=== PATIENT | male | born 1960 | race Caucasian/White ===

== ENCOUNTER 2018-11-28 10:43 | Inpatient (IN) ==
[2018-11-28] MEDS ORDERED: ACETAMINOPHEN 325 MG TABLET PO PRN (15:06)
[2018-11-28] MEDS ORDERED: ZALEPLON 5 MG CAPSULE PO PRN (15:06)
[2018-11-28] MEDS ORDERED: ONDANSETRON 4 MG/2 ML VIAL IV PRN (15:06)
[2018-11-28] MEDS: SODIUM CHLORIDE 0.9% 1,000 ML IV SCH (16:08)
[2018-11-28] MEDS ORDERED: GLUCAGON 1 MG VIAL IM PRN (16:15)
[2018-11-28] MEDS ORDERED: DEXTROSE 50% 25 GM/50 ML SYRINGE IV PRN (16:15)
[2018-11-28] MEDS: INSULIN LISPRO 100 UNIT/ML SUBCUT SCH (16:30)
[2018-11-28] MEDS: AZITHROMYCIN INJ 500 MG in SODIUM CHLORIDE 0.9% 250 ML IV SCH (16:46)
[2018-11-28] MEDS: methylPREDNISolone SOD SUC 125 MG/2 ML VIAL IV SCH ×2 (16:48→22:45)
[2018-11-28] MEDS: cefTRIAXone 1,000 MG in SYRINGE 1 EACH IV SCH (16:49)
[2018-11-28] MEDS: HEPARIN 5,000 UNIT/1 ML VIAL SUBCUT SCH (16:50)
[2018-11-28] MEDS: ALBUTEROL/IPRATROPIUM 3 ML NEB RESP TX SCH (19:13)
[2018-11-28] MEDS: MORPHINE IR 15 MG TABLET PO SCH (22:42)
[2018-11-28] MEDS: DOCUSATE SODIUM 100 MG CAPSULE PO SCH (22:43)
[2018-11-28] MEDS: CARISOPRODOL 350 MG TABLET PO SCH (22:45)
[2018-11-28] MEDS: buPROPion 75 MG TABLET PO SCH (22:45)
[2018-11-29] MEDS: INSULIN LISPRO 100 UNIT/ML SUBCUT SCH ×5 (00:20→20:15)
[2018-11-29] MEDS: SODIUM CHLORIDE 0.9% 1,000 ML IV SCH ×3 (00:47→21:05)
[2018-11-29] MEDS: HEPARIN 5,000 UNIT/1 ML VIAL SUBCUT SCH ×3 (00:47→16:09)
[2018-11-29] MEDS: ALBUTEROL/IPRATROPIUM 3 ML NEB RESP TX SCH ×4 (01:13→18:59)
[2018-11-29] MEDS: methylPREDNISolone SOD SUC 125 MG/2 ML VIAL IV SCH ×4 (05:12→22:32)
[2018-11-29] MEDS: MORPHINE IR 15 MG TABLET PO SCH ×3 (05:15→21:08)
[2018-11-29 05:52] LABS: Basophils % 0.1 % (0.0-0.8); Hemoglobin 15.9 GM/DL (14.0-18.0); Immature Granulocytes % 0.6 %; Immature Granulocytes Absolute 0.07 #; Lymphocytes # 0.5 10*3/uL (1.4-4.0); Lymphocytes % 4.3 % (21.2-54.2); Mean Corpuscular HGB Conc 31.8 GM/DL (32-36); Mean Corpuscular Volume 98.8 FL (87-102); Mean Platelet Volume 10.5 FL (9.6-12.0); Monocytes % 0.4 % (1.7-12.7); Neutrophils % 94.6 % (38.7-73.9); Platelet Count 243 T/CUMM (130-400); Red Blood Count 5.06 MC/CUMM (3.8-5.5); White Blood Count 12.2 T/CUMM (4-12)
[2018-11-29 06:19] LABS: Band Neutrophils 1 % (0-10); Hypochromasia 1+; Lymphocytes 2 % (20-55); Platelet Estimate Adequate; Segmented Neutrophils 97 % (50-85); Total Cells Counted 100
[2018-11-29 06:23] LABS: Albumin 3.2 G/DL (3.4-5.0); Bilirubin,Total 1.3 MG/DL (0.2-1.0); Calcium 9.3 MG/DL (8.5-10.1); Osmolality,Calculated 280.7 MOS/KG (273-304); Risk Ratio 2.92; Total Protein 6.7 G/DL (6.4-8.3); VLDL CHOLESTEROL 11.8 MG/DL
[2018-11-29] MEDS ORDERED: DEXAMETHASONE 10 MG/1 ML VIAL IV ONE (09:00)
[2018-11-29] MEDS ORDERED: diphenhydrAMINE 50 MG/1 ML VIAL IV ONE (09:00)
[2018-11-29] MEDS ORDERED: CARBOplatin 550 MG in SODIUM CHLORIDE 0.9% 250 ML IV ONE (09:00)
[2018-11-29] MEDS ORDERED: PACLITAXEL IV ONE (09:00)
[2018-11-29] MEDS ORDERED: SODIUM CHLORIDE 0.9% IV ONE (09:00)
[2018-11-29] MEDS ORDERED: ONDANSETRON 4 MG/2 ML VIAL IV ONE (09:00)
[2018-11-29] MEDS ORDERED: FAMOTIDINE 20 MG/2 ML VIAL IV ONE (09:00)
[2018-11-29] MEDS: buPROPion 75 MG TABLET PO SCH ×2 (09:37→21:07)
[2018-11-29] MEDS: DOCUSATE SODIUM 100 MG CAPSULE PO SCH ×2 (09:37→21:07)
[2018-11-29] MEDS: PANTOPRAZOLE 40 MG TABLET PO SCH (09:37)
[2018-11-29] MEDS: LISINOPRIL 10 MG TABLET PO SCH (09:37)
[2018-11-29] MEDS: hydroCHLOROthiazide 25 MG TABLET PO SCH (09:37)
[2018-11-29] MEDS: CARISOPRODOL 350 MG TABLET PO SCH ×2 (09:37→22:31)
[2018-11-29] MEDS ORDERED: MYLANTA/LIDO VISC 2:1 300 ML BOTTLE SWISH/SPIT PRN (13:50)
[2018-11-29] MEDS ORDERED: LACTULOSE 20 GM/30 ML UDCUP PO PRN (13:50)
[2018-11-29] MEDS ORDERED: TEMAZEPAM 7.5 MG CAPSULE PO PRN (13:50)
[2018-11-29] MEDS ORDERED: BENZTROPINE 2 MG/2 ML AMP IV PRN (13:50)
[2018-11-29] MEDS ORDERED: ALUMINUM/MAGNES/SIMETH MAX STR 30 ML UDCUP PO PRN (13:50)
[2018-11-29] MEDS ORDERED: PROMETHAZINE INJ 25 MG in SODIUM CHLORIDE 0.9% 50 ML IV PRN (13:50)
[2018-11-29] MEDS ORDERED: ONDANSETRON 4 MG/2 ML VIAL IV PRN (13:50)
[2018-11-29] MEDS ORDERED: MYLANTA/LIDO VISC 2:1 300 ML BOTTLE SWISH/SWAL PRN (13:50)
[2018-11-29] MEDS ORDERED: traMADol 50 MG TABLET PO PRN (13:50)
[2018-11-29] MEDS ORDERED: LOPERAMIDE 2 MG CAPSULE PO PRN ×2 (13:50)
[2018-11-29] MEDS ORDERED: ALPRAZolam 0.25 MG TABLET PO PRN (13:50)
[2018-11-29] MEDS ORDERED: MAGNESIUM HYDROXIDE SUSP 30 ML UDCUP PO PRN (13:50)
[2018-11-29] MEDS ORDERED: guaiFENesin 200 MG/10 ML UDCUP PO PRN (13:50)
[2018-11-29] MEDS ORDERED: diphenhydrAMINE CAP 25 MG CAPSULE PO PRN (13:50)
[2018-11-29] MEDS ORDERED: ACETAMINOPHEN 325 MG TABLET PO PRN (13:50)
[2018-11-29 14:29] LABS: Barbiturates Screen,Urine Negative (Negative); Benzodiazepines Screen,Urine Negative (Negative); Cannabinoid Screen,Urine Negative (Negative); Opiate Screen,Urine Positive (Negative); Phencyclidine Screen,Urine Negative (Negative)
[2018-11-29] MEDS: cefTRIAXone 1,000 MG in SYRINGE 1 EACH IV SCH (16:09)
[2018-11-29] MEDS: AZITHROMYCIN INJ 500 MG in SODIUM CHLORIDE 0.9% 250 ML IV SCH (17:25)
[2018-11-29] MEDS: MORPHINE 4 MG/1 ML VIAL IV PRN ×2 (17:52→22:34)
[2018-11-30] MEDS: ALBUTEROL/IPRATROPIUM 3 ML NEB RESP TX SCH ×3 (00:37→13:30)
[2018-11-30] MEDS: SODIUM CHLORIDE 0.9% 1,000 ML IV SCH (00:41)
[2018-11-30] MEDS: HEPARIN 5,000 UNIT/1 ML VIAL SUBCUT SCH ×2 (00:42→09:44)
[2018-11-30] MEDS: MORPHINE IR 15 MG TABLET PO SCH ×2 (05:45→14:09)
[2018-11-30] MEDS: methylPREDNISolone SOD SUC 125 MG/2 ML VIAL IV SCH ×2 (05:45→11:45)
[2018-11-30] MEDS: CARISOPRODOL 350 MG TABLET PO SCH ×2 (05:45→14:08)
[2018-11-30 05:48] LABS: Basophils % 0.1 % (0.0-0.8); Hematocrit 47.6 VOL% (42.0-52.0); Hemoglobin 15.7 GM/DL (14.0-18.0); Immature Granulocytes % 0.7 %; Immature Granulocytes Absolute 0.13 #; Lymphocytes # 0.6 10*3/uL (1.4-4.0); Mean Corpuscular Volume 96.6 FL (87-102); Mean Platelet Volume 10.7 FL (9.6-12.0); Monocytes % 2.8 % (1.7-12.7); Neutrophils % 93.4 % (38.7-73.9); Platelet Count 227 T/CUMM (130-400); Red Blood Count 4.93 MC/CUMM (3.8-5.5); White Blood Count 19.9 T/CUMM (4-12)
[2018-11-30 06:22] LABS: Lymphocytes 4 % (20-55); Platelet Estimate Adequate; Segmented Neutrophils 94 % (50-85); Total Cells Counted 100
[2018-11-30 06:33] LABS: Alanine Aminotransferase 22 U/L (16-61); Albumin 3.2 G/DL (3.4-5.0); Alkaline Phosphatase 80 U/L (45-117); Aspartate Amino Transferase 10 U/L (0-37); Bilirubin,Total < 0.39 MG/DL (0.2-1.0); Blood Urea Nitrogen 21 MG/DL (7-18); Calcium 8.7 MG/DL (8.5-10.1); Glucose 118 MG/DL (74-106); Osmolality,Calculated 278.7 MOS/KG (273-304); Total Protein 6.6 G/DL (6.4-8.3)
[2018-11-30] MEDS: INSULIN LISPRO 100 UNIT/ML SUBCUT SCH ×2 (07:57→12:09)
[2018-11-30] MEDS: DOCUSATE SODIUM 100 MG CAPSULE PO SCH (09:44)
[2018-11-30] MEDS: hydroCHLOROthiazide 25 MG TABLET PO SCH (09:44)
[2018-11-30] MEDS: LISINOPRIL 10 MG TABLET PO SCH (09:44)
[2018-11-30] MEDS: PANTOPRAZOLE 40 MG TABLET PO SCH (09:44)
[2018-11-30] MEDS: buPROPion 75 MG TABLET PO SCH (09:46)
[2018-11-30 12:10] VITALS: BP 137/76
[2018-11-30] MEDS: AZITHROMYCIN INJ 500 MG in SODIUM CHLORIDE 0.9% 250 ML IV SCH (15:14)
[2018-11-30] MEDS: cefTRIAXone 1,000 MG in SYRINGE 1 EACH IV SCH (15:14)
== END 2018-11-30 15:54 | disposition home or self-care (01) | DRG 847 ==
LOC: N.4E 14:44 → SUATTDRO 14:44
PROVIDERS: ADMIT Internal Medicine; ATTEND Internal Medicine

== ENCOUNTER 2019-03-23 14:44 | Inpatient (IN) ==
[2019-03-23] MEDS ORDERED: ONDANSETRON 4 MG/2 ML VIAL IV STA (15:33)
[2019-03-23] MEDS ORDERED: HYDROmorphone 2 MG/1 ML VIAL IV STA (15:33)
[2019-03-23 16:32] LABS: Alanine Aminotransferase 20 U/L (16-61); Albumin 3.5 G/DL (3.4-5.0); Alkaline Phosphatase 86 U/L (45-117); Aspartate Amino Transferase 11 U/L (0-37); Bilirubin,Total < 0.39 MG/DL (0.2-1.0); Blood Urea Nitrogen 16 MG/DL (7-18); Calcium 9.5 MG/DL (8.5-10.1); Glucose 100 MG/DL (74-106); Osmolality,Calculated 279.4 MOS/KG (273-304); Total Protein 7.3 G/DL (6.4-8.3)
[2019-03-23 16:43] LABS: Apearance,Urine CLOUDY (Clear); Bilirubin,Urine Negative (Negative); Blood, Urine Small mg/dL (Negative); Glucose,Urine (UA) Negative (Negative); Ketones,Urine Negative (Negative); Nitrite,Urine Negative (Negative); Protein,Urine Negative; Urine Color Yellow (Yellow); Urine Specific Gravity 1.015 (1.001-1.035); Urine Urobilinogen < 2.0 EU/DL (0.2-1.0)
[2019-03-23] MEDS ORDERED: ACETAMINOPHEN 325 MG TABLET PO PRN (17:50)
[2019-03-23] MEDS ORDERED: ONDANSETRON 4 MG/2 ML VIAL IV PRN (17:50)
[2019-03-23 19:19] LABS: Basophils % 0.5 % (0.0-0.8); Eosinophils # 0.2 10*3/uL (0.0-0.87); Eosinophils % 2.3 % (0.00-10.9); Hematocrit 47.3 VOL% (42.0-52.0); Hemoglobin 15.2 GM/DL (14.0-18.0); Immature Granulocytes % 0.4 %; Immature Granulocytes Absolute 0.03 #; Lymphocytes # 0.7 10*3/uL (1.4-4.0); Mean Corpuscular HGB Conc 32.1 GM/DL (32-36); Mean Corpuscular Volume 104.2 FL (87-102); Monocytes % 13.5 % (1.7-12.7); Neutrophils % 74.3 % (38.7-73.9); Platelet Count 200 T/CUMM (130-400); Red Blood Count 4.54 MC/CUMM (3.8-5.5); White Blood Count 8.1 T/CUMM (4-12)
[2019-03-23] MEDS: SODIUM CHLORIDE 0.9% 1,000 ML IV SCH (21:28)
[2019-03-23] MEDS: MORPHINE 4 MG/1 ML VIAL IV PRN (21:45)
[2019-03-24 04:56] LABS: Basophils % 0.6 % (0.0-0.8); Eosinophils # 0.2 10*3/uL (0.0-0.87); Eosinophils % 2.6 % (0.00-10.9); Hematocrit 48.7 VOL% (42.0-52.0); Immature Granulocytes % 0.4 %; Immature Granulocytes Absolute 0.03 #; Lymphocytes # 0.6 10*3/uL (1.4-4.0); Lymphocytes % 8.8 % (21.2-54.2); Mean Corpuscular HGB Conc 30.8 GM/DL (32-36); Mean Corpuscular Volume 107.3 FL (87-102); Mean Platelet Volume 9.6 FL (9.6-12.0); Monocytes % 12.1 % (1.7-12.7); Neutrophils % 75.5 % (38.7-73.9); Platelet Count 189 T/CUMM (130-400); Red Blood Count 4.54 MC/CUMM (3.8-5.5); Red Cell Distribution Width 13.9 % (9.3-17.3); White Blood Count 7.3 T/CUMM (4-12)
[2019-03-24 05:32] LABS: Calcium 9.5 MG/DL (8.5-10.1); Osmolality,Calculated 279.4 MOS/KG (273-304); Risk Ratio 4.47; Thyroid Stimulating Hormone 1.54 uIU/ml (0.358-3.74); VLDL CHOLESTEROL 23.6 MG/DL
[2019-03-24 06:30] LABS: Platelet Estimate Adequate; Polychromasia Slight
[2019-03-24] MEDS ORDERED: fentaNYL 12 MCG/HR PATCH TRANSDERM SCH (09:00)
[2019-03-24] MEDS: MORPHINE 4 MG/1 ML VIAL IV PRN ×2 (09:18→16:17)
[2019-03-24] MEDS: CYCLOBENZAPRINE 10 MG TABLET PO SCH ×2 (09:23→21:06)
[2019-03-24] MEDS: PANTOPRAZOLE 40 MG TABLET PO SCH (09:24)
[2019-03-24] MEDS: MULTIVITAMIN (CENTRUM) TABLET PO SCH (09:24)
[2019-03-24] MEDS: NICOTINE 14 MG/24 HR PATCH TRANSDERM SCH (09:24)
[2019-03-24] MEDS: ASPIRIN EC 81 MG TABLET PO SCH (09:24)
[2019-03-24] MEDS: SODIUM CHLORIDE 0.9% 1,000 ML IV SCH (10:33)
[2019-03-24] MEDS: GABAPENTIN 100 MG CAPSULE PO SCH ×2 (16:17→21:06)
[2019-03-25] MEDS: MORPHINE 4 MG/1 ML VIAL IV PRN ×3 (01:12→21:25)
[2019-03-25] MEDS: SODIUM CHLORIDE 0.9% 1,000 ML IV SCH (01:14)
[2019-03-25 04:35] LABS: Basophils % 0.5 % (0.0-0.8); Eosinophils # 0.2 10*3/uL (0.0-0.87); Eosinophils % 2.8 % (0.00-10.9); Hematocrit 45.7 VOL% (42.0-52.0); Hemoglobin 14.9 GM/DL (14.0-18.0); Immature Granulocytes % 0.4 %; Immature Granulocytes Absolute 0.03 #; Lymphocytes # 0.7 10*3/uL (1.4-4.0); Lymphocytes % 8.7 % (21.2-54.2); Mean Corpuscular HGB Conc 32.6 GM/DL (32-36); Mean Corpuscular Volume 105.1 FL (87-102); Mean Platelet Volume 9.4 FL (9.6-12.0); Monocytes % 11.2 % (1.7-12.7); Neutrophils % 76.4 % (38.7-73.9); Platelet Count 150 T/CUMM (130-400); Red Blood Count 4.35 MC/CUMM (3.8-5.5); Red Cell Distribution Width 13.7 % (9.3-17.3); White Blood Count 7.5 T/CUMM (4-12)
[2019-03-25 04:53] LABS: Calcium 8.9 MG/DL (8.5-10.1); Osmolality,Calculated 276.5 MOS/KG (273-304)
[2019-03-25] MEDS ORDERED: ALBUTEROL/IPRATROPIUM 3 ML NEB RESP TX ONE (07:27)
[2019-03-25] MEDS ORDERED: FAMOTIDINE 20 MG TABLET PO ONE (07:27)
[2019-03-25] MEDS: PANTOPRAZOLE 40 MG TABLET PO SCH (08:16)
[2019-03-25] MEDS: MULTIVITAMIN (CENTRUM) TABLET PO SCH (08:16)
[2019-03-25] MEDS ORDERED: DIAZEPAM 5 MG TABLET PO ONE (09:00)
[2019-03-25] MEDS: CYCLOBENZAPRINE 10 MG TABLET PO SCH ×2 (09:06→21:21)
[2019-03-25] MEDS: GABAPENTIN 100 MG CAPSULE PO SCH ×3 (09:07→21:21)
[2019-03-25 09:36] LABS: Barbiturates Screen,Urine Negative (Negative); Benzodiazepines Screen,Urine Negative (Negative); Cannabinoid Screen,Urine Negative (Negative); Opiate Screen,Urine Positive (Negative); Phencyclidine Screen,Urine Negative (Negative)
[2019-03-25] MEDS ORDERED: methylPREDNISolone ACETATE 80 MG/1 ML VIAL ONE (11:35)
[2019-03-25] MEDS ORDERED: MIDAZOLAM 2 MG/2 ML VIAL ONE (12:21)
[2019-03-25] MEDS ORDERED: ONDANSETRON 4 MG/2 ML VIAL ONE (12:22)
[2019-03-25] MEDS ORDERED: fentaNYL 100 MCG/2 ML VIAL ONE (12:22)
[2019-03-25] MEDS: NICOTINE 14 MG/24 HR PATCH TRANSDERM SCH (13:38)
[2019-03-25] MEDS ORDERED: fentaNYL 25 MCG/HR PATCH TRANSDERM SCH (18:06)
[2019-03-26] MEDS ORDERED: ALBUTEROL/IPRATROPIUM 3 ML NEB RESP TX STA (01:51)
[2019-03-26 05:03] LABS: Basophils % 0.5 % (0.0-0.8); Eosinophils # 0.2 10*3/uL (0.0-0.87); Eosinophils % 2.1 % (0.00-10.9); Hematocrit 46.7 VOL% (42.0-52.0); Hemoglobin 15.3 GM/DL (14.0-18.0); Immature Granulocytes % 0.4 %; Immature Granulocytes Absolute 0.03 #; Lymphocytes # 0.5 10*3/uL (1.4-4.0); Lymphocytes % 6.3 % (21.2-54.2); Mean Corpuscular HGB Conc 32.8 GM/DL (32-36); Mean Corpuscular Volume 103.8 FL (87-102); Mean Platelet Volume 9.5 FL (9.6-12.0); Monocytes % 9.7 % (1.7-12.7); Platelet Count 160 T/CUMM (130-400); Red Cell Distribution Width 13.3 % (9.3-17.3); White Blood Count 8.1 T/CUMM (4-12)
[2019-03-26 05:27] LABS: Calcium 9.3 MG/DL (8.5-10.1); Osmolality,Calculated 275.7 MOS/KG (273-304)
[2019-03-26] MEDS: MULTIVITAMIN (CENTRUM) TABLET PO SCH (08:33)
[2019-03-26] MEDS: GABAPENTIN 100 MG CAPSULE PO SCH ×2 (08:33→15:45)
[2019-03-26] MEDS: ASPIRIN EC 81 MG TABLET PO SCH (08:33)
[2019-03-26] MEDS: CYCLOBENZAPRINE 10 MG TABLET PO SCH (08:34)
[2019-03-26] MEDS: PANTOPRAZOLE 40 MG TABLET PO SCH (08:34)
[2019-03-26] MEDS: NICOTINE 14 MG/24 HR PATCH TRANSDERM SCH (08:35)
[2019-03-26] MEDS: MORPHINE 4 MG/1 ML VIAL IV PRN (15:45)
[2019-03-26 16:11] VITALS: BP 107/71
== END 2019-03-26 18:00 | disposition home or self-care (01) | DRG 343 ==
LOC: N.ED 14:44 → N.EDINP 17:48 → SUPCPDRO 17:48 → N.4E 19:19
PROVIDERS: ADMIT Internal Medicine; ATTEND Internal Medicine

== ENCOUNTER 2019-04-11 21:23 | Inpatient (IN) ==
[2019-04-11] MEDS ORDERED: methylPREDNISolone SOD SUC 125 MG/2 ML VIAL IV STA ×3 (22:03→23:42)
[2019-04-11 22:23] LABS: Basophils # 0.1 10*3/uL (0.0-0.2); Basophils % 0.5 % (0.0-0.8); Eosinophils # 0.3 10*3/uL (0.0-0.87); Eosinophils % 3.2 % (0.00-10.9); Hematocrit 47.3 VOL% (42.0-52.0); Hemoglobin 15.6 GM/DL (14.0-18.0); Immature Granulocytes % 0.5 %; Immature Granulocytes Absolute 0.05 #; Lymphocytes # 0.5 10*3/uL (1.4-4.0); Mean Corpuscular Volume 103.5 FL (87-102); Mean Platelet Volume 9.2 FL (9.6-12.0); Monocytes % 8.5 % (1.7-12.7); Neutrophils % 82.3 % (38.7-73.9); Platelet Count 215 T/CUMM (130-400); Red Blood Count 4.57 MC/CUMM (3.8-5.5); Red Cell Distribution Width 12.9 % (9.3-17.3); White Blood Count 10.5 T/CUMM (4-12)
[2019-04-11 22:41] LABS: INR 0.9; PT Patient Result 10.2 SECS (9.6-12.2); Partial Thromboplastin Time 27.1 SECS (20.8-36.0)
[2019-04-11 22:50] LABS: Alanine Aminotransferase 16 U/L (16-61); Albumin 3.4 G/DL (3.4-5.0); Alkaline Phosphatase 83 U/L (45-117); Aspartate Amino Transferase 15 U/L (0-37); Blood Urea Nitrogen 15 MG/DL (7-18); Calcium 9.5 MG/DL (8.5-10.1); Glucose 109 MG/DL (74-106); Osmolality,Calculated 276.7 MOS/KG (273-304); Total Protein 7.6 G/DL (6.4-8.3); Troponin I < 0.015 NG/ML (0.00-0.045)
[2019-04-11] MEDS ORDERED: ALBUTEROL NEB SOLN 5 MG/ML 20 ML/BOTTLE CONT NEB STA (22:53)
[2019-04-12] MEDS ORDERED: ONDANSETRON 4 MG/2 ML VIAL IV PRN (01:08)
[2019-04-12] MEDS ORDERED: SODIUM CHLORIDE 0.9% 1,000 ML IV SCH (01:30)
[2019-04-12 02:47] LABS: Allen Test Positive
[2019-04-12 02:48] LABS: ABG Base Excess 5.2 MMOL/L (-2.5-2.5); ABG HCO3 28.8 MMOL/L (20-26); ABG Oxygen Saturation 88.9 % (95-100); ABG PCO2 46.2 MM HG (35-48); ABG PH 7.428 (7.35-7.45); ABG PO2 53.1 MM HG (80-95); ABG TCO2 25.8 MMOL/L (23-27)
[2019-04-12] MEDS ORDERED: fentaNYL 25 MCG/HR PATCH TRANSDERM SCH (03:00)
[2019-04-12] MEDS ORDERED: RACEPINEPHRINE 0.5 ML NEB RESP TX ONE (03:02)
[2019-04-12] MEDS: ALBUTEROL/IPRATROPIUM 3 ML NEB RESP TX SCH ×6 (03:15→23:50)
[2019-04-12] MEDS: ENOXAPARIN 40 MG/0.4 ML SYRINGE SUBCUT SCH (03:30)
[2019-04-12 04:59] LABS: Basophils % 0.2 % (0.0-0.8); Hematocrit 47.8 VOL% (42.0-52.0); Hemoglobin 15.4 GM/DL (14.0-18.0); Immature Granulocytes % 0.6 %; Immature Granulocytes Absolute 0.07 #; Lymphocytes # 0.2 10*3/uL (1.4-4.0); Lymphocytes % 1.5 % (21.2-54.2); Mean Corpuscular HGB Conc 32.2 GM/DL (32-36); Mean Corpuscular Volume 103.7 FL (87-102); Mean Platelet Volume 9.4 FL (9.6-12.0); Monocytes % 0.5 % (1.7-12.7); Neutrophils % 97.2 % (38.7-73.9); Platelet Count 222 T/CUMM (130-400); Red Blood Count 4.61 MC/CUMM (3.8-5.5); Red Cell Distribution Width 12.7 % (9.3-17.3); White Blood Count 10.9 T/CUMM (4-12)
[2019-04-12 05:47] LABS: Calcium 9.8 MG/DL (8.5-10.1); Osmolality,Calculated 278.8 MOS/KG (273-304)
[2019-04-12 05:53] LABS: Lymphocytes 1 % (20-55); Segmented Neutrophils 99 % (50-85); Total Cells Counted 100
[2019-04-12 05:55] LABS: Anisocytosis Slight; Macrocytosis Slight; Platelet Estimate Normal
[2019-04-12] MEDS ORDERED: methylPREDNISolone SOD SUC 40 MG/1 ML VIAL IV SCH (06:00)
[2019-04-12] MEDS: METOPROLOL TARTRATE 25 MG TABLET PO SCH ×2 (09:37→20:59)
[2019-04-12] MEDS ORDERED: POTASSIUM CHLORIDE 20 MEQ TABLET PO ONE (10:08)
[2019-04-12] MEDS: DEXAMETHASONE 4 MG/1 ML VIAL IV SCH ×2 (10:30→20:59)
[2019-04-12] MEDS: ASPIRIN EC 81 MG TABLET PO SCH (17:21)
[2019-04-12] MEDS: GABAPENTIN 100 MG CAPSULE PO SCH ×2 (17:21→20:59)
[2019-04-12] MEDS ORDERED: MORPHINE 4 MG/1 ML VIAL IV PRN (19:42)
[2019-04-12] MEDS: MORPHINE 4 MG/1 ML VIAL IV PRN (20:05)
[2019-04-13] MEDS: ENOXAPARIN 40 MG/0.4 ML SYRINGE SUBCUT SCH (01:27)
[2019-04-13] MEDS: MORPHINE 4 MG/1 ML VIAL IV PRN ×2 (03:46→18:33)
[2019-04-13] MEDS: ALBUTEROL/IPRATROPIUM 3 ML NEB RESP TX SCH ×7 (04:20→23:46)
[2019-04-13 04:51] LABS: Hematocrit 43.7 VOL% (42.0-52.0); Hemoglobin 14.2 GM/DL (14.0-18.0); Immature Granulocytes % 0.8 %; Immature Granulocytes Absolute 0.17 #; Lymphocytes # 0.4 10*3/uL (1.4-4.0); Lymphocytes % 1.5 % (21.2-54.2); Mean Corpuscular HGB Conc 32.5 GM/DL (32-36); Mean Corpuscular Volume 103.8 FL (87-102); Monocytes % 4.4 % (1.7-12.7); Neutrophils % 93.3 % (38.7-73.9); Platelet Count 220 T/CUMM (130-400); Red Blood Count 4.21 MC/CUMM (3.8-5.5); Red Cell Distribution Width 12.8 % (9.3-17.3); White Blood Count 22.7 T/CUMM (4-12)
[2019-04-13 05:09] LABS: Calcium 9.5 MG/DL (8.5-10.1); Osmolality,Calculated 277.7 MOS/KG (273-304)
[2019-04-13 05:17] LABS: Band Neutrophils 1 % (0-10); Segmented Neutrophils 93 % (50-85); Total Cells Counted 100
[2019-04-13 05:18] LABS: Hypochromasia 1+; Platelet Estimate Adequate
[2019-04-13] MEDS: MULTIVITAMIN (CENTRUM) TABLET PO SCH (08:50)
[2019-04-13] MEDS: GABAPENTIN 100 MG CAPSULE PO SCH ×3 (08:51→20:47)
[2019-04-13] MEDS: ASPIRIN EC 81 MG TABLET PO SCH (08:51)
[2019-04-13] MEDS: DEXAMETHASONE 4 MG/1 ML VIAL IV SCH ×2 (09:00→21:04)
[2019-04-13] MEDS: METOPROLOL TARTRATE 25 MG TABLET PO SCH ×2 (09:02→20:47)
[2019-04-13] MEDS ORDERED: DIAZEPAM 2 MG TABLET PO PRN (09:50)
[2019-04-14] MEDS: ENOXAPARIN 40 MG/0.4 ML SYRINGE SUBCUT SCH (01:30)
[2019-04-14] MEDS: ALBUTEROL/IPRATROPIUM 3 ML NEB RESP TX SCH ×3 (03:49→11:15)
[2019-04-14 07:58] VITALS: BP 112/88
[2019-04-14] MEDS ORDERED: oxyCODONE/ACETAMINOPHEN 5-325 MG TABLET PO PRN (08:55)
[2019-04-14] MEDS: DEXAMETHASONE 4 MG/1 ML VIAL IV SCH (09:18)
[2019-04-14] MEDS: METOPROLOL TARTRATE 25 MG TABLET PO SCH (09:19)
[2019-04-14] MEDS: GABAPENTIN 100 MG CAPSULE PO SCH (09:19)
[2019-04-14] MEDS: MULTIVITAMIN (CENTRUM) TABLET PO SCH (09:19)
[2019-04-14] MEDS: ASPIRIN EC 81 MG TABLET PO SCH (09:19)
[2019-04-14] MEDS ORDERED: HEPARIN LOCK FLUSH 500 UNIT/5 ML SYRINGE IV ONE (12:04)
== END 2019-04-14 12:25 | disposition home or self-care (01) | DRG 815 ==
LOC: N.ED 21:23 → N.EDINP 04-12 00:58 → SUATTDRO 04-12 00:58 → N.CC 04-12 02:43 → N.4E 04-12 12:19
PROVIDERS: ADMIT Internal Medicine; ATTEND Internal Medicine

== ENCOUNTER 2019-05-01 22:57 | Inpatient (IN) ==
[2019-05-02] MEDS ORDERED: methylPREDNISolone SOD SUC 125 MG/2 ML VIAL IV STA (00:33)
[2019-05-02] MEDS ORDERED: ALBUTEROL/IPRATROPIUM 3 ML NEB RESP TX STA (00:33)
[2019-05-02 01:27] LABS: Basophils % 0.4 % (0.0-0.8); Eosinophils # 0.4 10*3/uL (0.0-0.87); Eosinophils % 3.8 % (0.00-10.9); Hematocrit 42.1 VOL% (42.0-52.0); Hemoglobin 13.7 GM/DL (14.0-18.0); Immature Granulocytes % 0.6 %; Immature Granulocytes Absolute 0.06 #; Lymphocytes # 0.6 10*3/uL (1.4-4.0); Mean Corpuscular HGB Conc 32.5 GM/DL (32-36); Mean Corpuscular Volume 102.9 FL (87-102); Mean Platelet Volume 9.6 FL (9.6-12.0); Monocytes % 8.1 % (1.7-12.7); Neutrophils % 81.1 % (38.7-73.9); Platelet Count 169 T/CUMM (130-400); Red Blood Count 4.09 MC/CUMM (3.8-5.5); Red Cell Distribution Width 13.3 % (9.3-17.3); White Blood Count 10.1 T/CUMM (4-12)
[2019-05-02 01:52] LABS: Alanine Aminotransferase 18 U/L (16-61); Alkaline Phosphatase 77 U/L (45-117); Aspartate Amino Transferase 12 U/L (0-37); Bilirubin,Total < 0.39 MG/DL (0.2-1.0); Blood Urea Nitrogen 12 MG/DL (7-18); Calcium 9.3 MG/DL (8.5-10.1); Estimated Glom Filtration Rate 121 ML/MIN; Glucose 111 MG/DL (74-106); Osmolality,Calculated 279.4 MOS/KG (273-304); Total Protein 6.7 G/DL (6.4-8.3)
[2019-05-02 03:54] LABS: ABG Base Excess 7.1 MMOL/L (-2.5-2.5); ABG HCO3 30.5 MMOL/L (20-26); ABG Oxygen Saturation 84.7 % (95-100); ABG PCO2 55.6 MM HG (35-48); ABG PH 7.395 (7.35-7.45); ABG PO2 47.8 MM HG (80-95); ABG TCO2 29.5 MMOL/L (23-27); Allen Test Positive
[2019-05-02] MEDS ORDERED: FUROSEMIDE 20 MG TABLET PO PRN (05:14)
[2019-05-02] MEDS ORDERED: ACETAMINOPHEN 325 MG TABLET PO PRN (06:13)
[2019-05-02] MEDS ORDERED: ONDANSETRON 4 MG/2 ML VIAL IV PRN (06:13)
[2019-05-02] MEDS ORDERED: guaiFENesin/DM ER 600-30 MG TABLET PO PRN (06:13)
[2019-05-02 08:45] LABS: Thyroid Stimulating Hormone 0.887 uIU/ml (0.358-3.74)
[2019-05-02] MEDS ORDERED: LORATADINE/PSEUDOEPH 5-120 MG (12 HR) TABLET PO SCH (09:00)
[2019-05-02] MEDS: ALBUTEROL/IPRATROPIUM 3 ML NEB RESP TX SCH ×4 (09:01→20:02)
[2019-05-02 09:13] LABS: ABG Base Excess 7.5 MMOL/L (-2.5-2.5); ABG HCO3 34.4 MMOL/L (20-26); ABG PCO2 57.3 MM HG (35-48); ABG PH 7.396 (7.35-7.45); ABG PO2 81.1 MM HG (80-95); ABG TCO2 36.1 MMOL/L (23-27); Pt O2 Delivery Device Other
[2019-05-02] MEDS: ASPIRIN EC 81 MG TABLET PO SCH (09:58)
[2019-05-02] MEDS: ENOXAPARIN 40 MG/0.4 ML SYRINGE SUBCUT SCH (09:58)
[2019-05-02] MEDS: METOPROLOL TARTRATE 25 MG TABLET PO SCH ×2 (09:58→21:12)
[2019-05-02] MEDS: MULTIVITAMIN (CENTRUM) TABLET PO SCH (09:58)
[2019-05-02] MEDS: PANTOPRAZOLE 40 MG TABLET PO SCH (09:58)
[2019-05-02] MEDS: methylPREDNISolone SOD SUC 125 MG/2 ML VIAL IV SCH ×2 (09:58→21:08)
[2019-05-02] MEDS: PSEUDOEPHEDRINE 30 MG TABLET PO SCH ×3 (10:14→21:36)
[2019-05-02] MEDS: LORATADINE 10 MG TABLET PO SCH (10:14)
[2019-05-02] MEDS: PIPERACILLIN/TAZOBACTAM 3,375 MG in SODIUM CHLORIDE 0.9% 100 ML IV SCH ×2 (15:51→23:59)
[2019-05-02] MEDS: AZITHROMYCIN 250 MG TABLET PO SCH (15:51)
[2019-05-02] MEDS: oxyCODONE/ACETAMINOPHEN 5-325 MG TABLET PO PRN (21:13)
[2019-05-03] MEDS: PSEUDOEPHEDRINE 30 MG TABLET PO SCH ×4 (03:47→23:12)
[2019-05-03] MEDS: oxyCODONE/ACETAMINOPHEN 5-325 MG TABLET PO PRN ×4 (03:50→20:08)
[2019-05-03 06:31] LABS: Basophils % 0.1 % (0.0-0.8); Hematocrit 41.9 VOL% (42.0-52.0); Hemoglobin 13.9 GM/DL (14.0-18.0); Immature Granulocytes % 0.6 %; Lymphocytes # 0.3 10*3/uL (1.4-4.0); Lymphocytes % 1.5 % (21.2-54.2); Mean Corpuscular HGB Conc 33.2 GM/DL (32-36); Mean Corpuscular Volume 101.5 FL (87-102); Mean Platelet Volume 9.9 FL (9.6-12.0); Monocytes % 2.1 % (1.7-12.7); Neutrophils % 95.7 % (38.7-73.9); Platelet Count 189 T/CUMM (130-400); Red Blood Count 4.13 MC/CUMM (3.8-5.5); Red Cell Distribution Width 13.1 % (9.3-17.3)
[2019-05-03 06:55] LABS: Band Neutrophils 1 % (0-10); Hypochromasia 1+; Lymphocytes 2 % (20-55); Platelet Estimate Adequate; Segmented Neutrophils 96 % (50-85); Total Cells Counted 100
[2019-05-03 07:02] LABS: Alanine Aminotransferase 16 U/L (16-61); Albumin 2.9 G/DL (3.4-5.0); Alkaline Phosphatase 67 U/L (45-117); Aspartate Amino Transferase 8 U/L (0-37); Bilirubin,Total < 0.39 MG/DL (0.2-1.0); Blood Urea Nitrogen 17 MG/DL (7-18); Calcium 9.5 MG/DL (8.5-10.1); Estimated Glom Filtration Rate 120 ML/MIN; Glucose 129 MG/DL (74-106); Osmolality,Calculated 286.1 MOS/KG (273-304); Total Protein 6.3 G/DL (6.4-8.3)
[2019-05-03] MEDS: ALBUTEROL/IPRATROPIUM 3 ML NEB RESP TX SCH ×4 (07:18→19:29)
[2019-05-03] MEDS: methylPREDNISolone SOD SUC 125 MG/2 ML VIAL IV SCH ×2 (09:18→20:09)
[2019-05-03] MEDS: AZITHROMYCIN 250 MG TABLET PO SCH (09:22)
[2019-05-03] MEDS: MULTIVITAMIN (CENTRUM) TABLET PO SCH (09:23)
[2019-05-03] MEDS: LORATADINE 10 MG TABLET PO SCH (09:23)
[2019-05-03] MEDS: ASPIRIN EC 81 MG TABLET PO SCH (09:23)
[2019-05-03] MEDS: ENOXAPARIN 40 MG/0.4 ML SYRINGE SUBCUT SCH (09:24)
[2019-05-03] MEDS: PIPERACILLIN/TAZOBACTAM 3,375 MG in SODIUM CHLORIDE 0.9% 100 ML IV SCH ×3 (09:24→23:12)
[2019-05-03] MEDS: PANTOPRAZOLE 40 MG TABLET PO SCH (09:24)
[2019-05-03] MEDS: METOPROLOL TARTRATE 25 MG TABLET PO SCH ×2 (12:59→20:09)
[2019-05-04] MEDS: MORPHINE 4 MG/1 ML VIAL IV PRN (04:10)
[2019-05-04] MEDS: PSEUDOEPHEDRINE 30 MG TABLET PO SCH ×4 (04:10→21:35)
[2019-05-04 05:20] LABS: Basophils % 0.1 % (0.0-0.8); Hematocrit 42.7 VOL% (42.0-52.0); Hemoglobin 13.7 GM/DL (14.0-18.0); Immature Granulocytes % 0.6 %; Immature Granulocytes Absolute 0.09 #; Lymphocytes # 0.2 10*3/uL (1.4-4.0); Lymphocytes % 1.3 % (21.2-54.2); Mean Corpuscular HGB Conc 32.1 GM/DL (32-36); Mean Corpuscular Volume 103.4 FL (87-102); Mean Platelet Volume 9.9 FL (9.6-12.0); Monocytes % 1.5 % (1.7-12.7); Neutrophils % 96.5 % (38.7-73.9); Platelet Count 200 T/CUMM (130-400); Red Blood Count 4.13 MC/CUMM (3.8-5.5); Red Cell Distribution Width 13.5 % (9.3-17.3); White Blood Count 14.7 T/CUMM (4-12)
[2019-05-04 05:56] LABS: Band Neutrophils 5 % (0-10); Segmented Neutrophils 94 % (50-85); Total Cells Counted 100
[2019-05-04 05:57] LABS: Anisocytosis 1+; Platelet Estimate Normal; Target Cells Few
[2019-05-04] MEDS: ALBUTEROL/IPRATROPIUM 3 ML NEB RESP TX SCH ×4 (07:09→19:01)
[2019-05-04] MEDS: ENOXAPARIN 40 MG/0.4 ML SYRINGE SUBCUT SCH (10:17)
[2019-05-04] MEDS: PIPERACILLIN/TAZOBACTAM 3,375 MG in SODIUM CHLORIDE 0.9% 100 ML IV SCH ×3 (10:28→23:59)
[2019-05-04] MEDS: AZITHROMYCIN 250 MG TABLET PO SCH (10:29)
[2019-05-04] MEDS: MULTIVITAMIN (CENTRUM) TABLET PO SCH (10:29)
[2019-05-04] MEDS: methylPREDNISolone SOD SUC 125 MG/2 ML VIAL IV SCH ×2 (10:29→20:42)
[2019-05-04] MEDS: PANTOPRAZOLE 40 MG TABLET PO SCH (10:30)
[2019-05-04] MEDS: METOPROLOL TARTRATE 25 MG TABLET PO SCH ×2 (10:30→20:42)
[2019-05-04] MEDS: LORATADINE 10 MG TABLET PO SCH (10:30)
[2019-05-04] MEDS: ASPIRIN EC 81 MG TABLET PO SCH (10:30)
[2019-05-04] MEDS: oxyCODONE/ACETAMINOPHEN 5-325 MG TABLET PO PRN ×2 (10:34→16:59)
[2019-05-05] MEDS: MORPHINE 4 MG/1 ML VIAL IV PRN (04:16)
[2019-05-05] MEDS: PSEUDOEPHEDRINE 30 MG TABLET PO SCH ×4 (04:23→21:29)
[2019-05-05 05:27] LABS: Basophils % 0.2 % (0.0-0.8); Hematocrit 45.2 VOL% (42.0-52.0); Hemoglobin 14.7 GM/DL (14.0-18.0); Immature Granulocytes % 0.7 %; Immature Granulocytes Absolute 0.09 #; Lymphocytes # 0.2 10*3/uL (1.4-4.0); Lymphocytes % 1.4 % (21.2-54.2); Mean Corpuscular HGB Conc 32.5 GM/DL (32-36); Mean Corpuscular Volume 103.2 FL (87-102); Mean Platelet Volume 9.7 FL (9.6-12.0); Monocytes % 2.2 % (1.7-12.7); Neutrophils % 95.5 % (38.7-73.9); Platelet Count 208 T/CUMM (130-400); Red Blood Count 4.38 MC/CUMM (3.8-5.5); Red Cell Distribution Width 13.3 % (9.3-17.3); White Blood Count 12.6 T/CUMM (4-12)
[2019-05-05 05:39] LABS: Calcium 9.2 MG/DL (8.5-10.1); Osmolality,Calculated 277.7 MOS/KG (273-304)
[2019-05-05 06:26] LABS: Anisocytosis Slight; Band Neutrophils 8 % (0-10); Lymphocytes 1 % (20-55); Macrocytosis 1+; Platelet Estimate Normal; Segmented Neutrophils 86 % (50-85); Total Cells Counted 100
[2019-05-05] MEDS: ALBUTEROL/IPRATROPIUM 3 ML NEB RESP TX SCH ×4 (06:52→20:17)
[2019-05-05] MEDS: PIPERACILLIN/TAZOBACTAM 3,375 MG in SODIUM CHLORIDE 0.9% 100 ML IV SCH ×3 (08:49→23:57)
[2019-05-05] MEDS: MULTIVITAMIN (CENTRUM) TABLET PO SCH (08:53)
[2019-05-05] MEDS: ASPIRIN EC 81 MG TABLET PO SCH (08:53)
[2019-05-05] MEDS: METOPROLOL TARTRATE 25 MG TABLET PO SCH ×2 (08:54→21:30)
[2019-05-05] MEDS: ENOXAPARIN 40 MG/0.4 ML SYRINGE SUBCUT SCH (08:54)
[2019-05-05] MEDS: PANTOPRAZOLE 40 MG TABLET PO SCH (08:54)
[2019-05-05] MEDS: LORATADINE 10 MG TABLET PO SCH (08:54)
[2019-05-05] MEDS: AZITHROMYCIN 250 MG TABLET PO SCH (08:55)
[2019-05-05] MEDS ORDERED: ceFAZolin 1,000 MG in SYRINGE 1 EACH IV ONE (09:30)
[2019-05-05] MEDS: methylPREDNISolone SOD SUC 125 MG/2 ML VIAL IV SCH ×2 (09:52→21:20)
[2019-05-05] MEDS ORDERED: LIDOCAINE 1%/EPI INJ 20 ML VIAL ONE (12:06)
[2019-05-05] MEDS ORDERED: ceFAZolin 1,000 MG VIAL ONE (13:56)
[2019-05-05] MEDS ORDERED: TISSUE ADHESIVE 1 EACH APPLICATOR TOP ONE (14:03)
[2019-05-05] MEDS ORDERED: HEPARIN LOCK FLUSH 500 UNIT/5 ML SYRINGE IV ONE (14:05)
[2019-05-05] MEDS: PROPOFOL 1,000 MG/100 ML BOTTLE IV SCH ×3 (15:00→22:02)
[2019-05-05] MEDS ORDERED: PROPOFOL 200 MG/20 ML VIAL IV ONE (15:02)
[2019-05-05] MEDS ORDERED: LIDOCAINE 2% 5 ML VIAL ONE (15:02)
[2019-05-05] MEDS ORDERED: SEVOFLURANE 1 UNIT/15 MINUTE INH ONE (15:02)
[2019-05-05] MEDS ORDERED: PHENYLEPHRINE DRIP 20 MG/250 ML PREMIX IV ONE (15:02)
[2019-05-05] MEDS ORDERED: DEXAMETHASONE 4 MG/1 ML VIAL ONE (15:03)
[2019-05-05] MEDS ORDERED: SUCCINYLCHOLINE 200 MG/10 ML VIAL ONE (15:03)
[2019-05-05] MEDS ORDERED: LACTATED RINGERS 1,000 ML IV ONE (15:03)
[2019-05-05] MEDS ORDERED: MIDAZOLAM 2 MG/2 ML VIAL ONE (15:03)
[2019-05-05] MEDS ORDERED: fentaNYL 100 MCG/2 ML VIAL ONE (15:03)
[2019-05-05] MEDS ORDERED: ROCURONIUM 100 MG/10 ML VIAL IV ONE (15:03)
[2019-05-05 15:24] LABS: ABG Base Excess 6.2 MMOL/L (-2.5-2.5); ABG HCO3 29.7 MMOL/L (20-26); ABG Oxygen Saturation 86.5 % (95-100); ABG PCO2 47.5 MM HG (35-48); ABG PH 7.433 (7.35-7.45); ABG PO2 52.4 MM HG (80-95); ABG TCO2 26.9 MMOL/L (23-27)
[2019-05-05 18:36] LABS: Apearance,Urine CLEAR (Clear); Bacteria,Urine Occasional /HPF (Few); Bilirubin,Urine Negative (Negative); Blood, Urine Negative (Negative); Glucose,Urine (UA) Negative (Negative); Ketones,Urine Negative (Negative); Nitrite,Urine Negative (Negative); Protein,Urine Negative; RBC,Urine <1 /HPF (0-4); Urine Color Straw (Yellow); Urine Urobilinogen < 2.0 EU/DL (0.2-1.0); WBC,Urine <1 /HPF (0-6)
[2019-05-05] MEDS: fentaNYL INJ 1,250 MCG in SODIUM CHLORIDE 0.9% 225 ML IV PRN (19:00)
[2019-05-06 03:56] LABS: ABG Base Excess 7.4 MMOL/L (-2.5-2.5); ABG HCO3 31.1 MMOL/L (20-26); ABG Oxygen Saturation 96.5 % (95-100); ABG PCO2 45.7 MM HG (35-48); ABG PH 7.459 (7.35-7.45); ABG PO2 80.5 MM HG (80-95); ABG TCO2 28.1 MMOL/L (23-27)
[2019-05-06] MEDS: PSEUDOEPHEDRINE 30 MG TABLET PO SCH ×4 (03:59→22:37)
[2019-05-06] MEDS: PROPOFOL 1,000 MG/100 ML BOTTLE IV SCH ×5 (04:04→23:12)
[2019-05-06 04:05] LABS: Basophils % 0.1 % (0.0-0.8); Hematocrit 40.2 VOL% (42.0-52.0); Immature Granulocytes % 0.6 %; Immature Granulocytes Absolute 0.06 #; Lymphocytes # 0.2 10*3/uL (1.4-4.0); Lymphocytes % 1.9 % (21.2-54.2); Mean Corpuscular HGB Conc 32.3 GM/DL (32-36); Mean Corpuscular Volume 102.3 FL (87-102); Mean Platelet Volume 9.4 FL (9.6-12.0); Monocytes % 3.3 % (1.7-12.7); Neutrophils % 94.1 % (38.7-73.9); Platelet Count 174 T/CUMM (130-400); Red Blood Count 3.93 MC/CUMM (3.8-5.5); Red Cell Distribution Width 13.2 % (9.3-17.3); White Blood Count 9.6 T/CUMM (4-12)
[2019-05-06 04:17] LABS: Calcium 8.4 MG/DL (8.5-10.1); Osmolality,Calculated 283.3 MOS/KG (273-304)
[2019-05-06 04:34] LABS: Hypochromasia 1+; Lymphocytes 2 % (20-55); Platelet Estimate Adequate; Segmented Neutrophils 94 % (50-85); Total Cells Counted 100
[2019-05-06] MEDS: fentaNYL INJ 1,250 MCG in SODIUM CHLORIDE 0.9% 225 ML IV PRN ×2 (05:58→18:55)
[2019-05-06] MEDS: ALBUTEROL/IPRATROPIUM 3 ML NEB RESP TX SCH ×4 (07:09→20:47)
[2019-05-06] MEDS ORDERED: FUROSEMIDE 40 MG/4 ML VIAL IV ONE (08:06)
[2019-05-06] MEDS: methylPREDNISolone SOD SUC 125 MG/2 ML VIAL IV SCH ×2 (08:49→20:57)
[2019-05-06] MEDS: ENOXAPARIN 40 MG/0.4 ML SYRINGE SUBCUT SCH (08:49)
[2019-05-06] MEDS: PIPERACILLIN/TAZOBACTAM 3,375 MG in SODIUM CHLORIDE 0.9% 100 ML IV SCH ×3 (08:49→23:08)
[2019-05-06] MEDS: ASPIRIN EC 81 MG TABLET PO SCH (08:49)
[2019-05-06] MEDS: CLOPIDOGREL 75 MG TABLET PO SCH (08:50)
[2019-05-06] MEDS: LANSOPRAZOLE ODT 30 MG TABLET PER TUBE SCH (08:50)
[2019-05-06] MEDS: AZITHROMYCIN 250 MG TABLET PO SCH (08:50)
[2019-05-06] MEDS: METOPROLOL TARTRATE 25 MG TABLET PO SCH ×3 (08:50→22:37)
[2019-05-06] MEDS: MULTIVITAMIN (CENTRUM) TABLET PO SCH (08:50)
[2019-05-06] MEDS: LORATADINE 10 MG TABLET PO SCH (08:50)
[2019-05-06] MEDS ORDERED: GLUCAGON 1 MG VIAL IM PRN (15:42)
[2019-05-06] MEDS ORDERED: DEXTROSE 10% 250 ML BAG IV PRN (15:42)
[2019-05-06] MEDS: INSULIN REGULAR 100 UNIT/ML SUBCUT SCH ×2 (17:23→23:43)
[2019-05-07 03:56] LABS: ABG Base Excess 5.7 MMOL/L (-2.5-2.5); ABG HCO3 29.5 MMOL/L (20-26); ABG PCO2 45.8 MM HG (35-48); ABG PH 7.437 (7.35-7.45); ABG TCO2 26.5 MMOL/L (23-27)
[2019-05-07 04:13] LABS: Basophils % 0.1 % (0.0-0.8); Hematocrit 42.5 VOL% (42.0-52.0); Hemoglobin 13.8 GM/DL (14.0-18.0); Immature Granulocytes % 0.6 %; Immature Granulocytes Absolute 0.06 #; Lymphocytes # 0.2 10*3/uL (1.4-4.0); Lymphocytes % 1.8 % (21.2-54.2); Mean Corpuscular HGB Conc 32.5 GM/DL (32-36); Mean Corpuscular Volume 100.2 FL (87-102); Mean Platelet Volume 9.7 FL (9.6-12.0); Monocytes % 4.3 % (1.7-12.7); Neutrophils % 93.2 % (38.7-73.9); Platelet Count 187 T/CUMM (130-400); Red Blood Count 4.24 MC/CUMM (3.8-5.5); White Blood Count 9.8 T/CUMM (4-12)
[2019-05-07] MEDS: fentaNYL INJ 1,250 MCG in SODIUM CHLORIDE 0.9% 225 ML IV PRN (04:20)
[2019-05-07] MEDS: PROPOFOL 1,000 MG/100 ML BOTTLE IV SCH (04:32)
[2019-05-07] MEDS: PSEUDOEPHEDRINE 30 MG TABLET PO SCH ×4 (04:35→22:55)
[2019-05-07 04:42] LABS: Alanine Aminotransferase 30 U/L (16-61); Albumin 2.5 G/DL (3.4-5.0); Alkaline Phosphatase 60 U/L (45-117); Aspartate Amino Transferase 10 U/L (0-37); Bilirubin,Total < 0.39 MG/DL (0.2-1.0); Blood Urea Nitrogen 24 MG/DL (7-18); Calcium 8.4 MG/DL (8.5-10.1); Estimated Glom Filtration Rate 117 ML/MIN; Glucose 155 MG/DL (74-106); Osmolality,Calculated 289.1 MOS/KG (273-304); Total Protein 5.4 G/DL (6.4-8.3)
[2019-05-07 04:47] LABS: Lymphocytes 3 % (20-55); Platelet Estimate Normal; Segmented Neutrophils 94 % (50-85); Total Cells Counted 100
[2019-05-07 04:52] LABS: Prealbumin 22.6 MG/DL (20-40)
[2019-05-07] MEDS: INSULIN REGULAR 100 UNIT/ML SUBCUT SCH ×4 (06:24→17:55)
[2019-05-07] MEDS: ALBUTEROL/IPRATROPIUM 3 ML NEB RESP TX SCH ×4 (07:35→18:52)
[2019-05-07] MEDS: PIPERACILLIN/TAZOBACTAM 3,375 MG in SODIUM CHLORIDE 0.9% 100 ML IV SCH ×2 (08:14→16:30)
[2019-05-07] MEDS: ASPIRIN EC 81 MG TABLET PO SCH (08:14)
[2019-05-07] MEDS: LORATADINE 10 MG TABLET PO SCH (08:14)
[2019-05-07] MEDS: MULTIVITAMIN (CENTRUM) TABLET PO SCH (08:14)
[2019-05-07] MEDS: METOPROLOL TARTRATE 25 MG TABLET PO SCH ×2 (08:15→20:52)
[2019-05-07] MEDS: CLOPIDOGREL 75 MG TABLET PO SCH (08:15)
[2019-05-07] MEDS: LANSOPRAZOLE ODT 30 MG TABLET PER TUBE SCH (08:15)
[2019-05-07] MEDS: methylPREDNISolone SOD SUC 125 MG/2 ML VIAL IV SCH ×2 (08:15→20:49)
[2019-05-07] MEDS: AZITHROMYCIN 250 MG TABLET PO SCH (08:15)
[2019-05-07] MEDS: ENOXAPARIN 40 MG/0.4 ML SYRINGE SUBCUT SCH (08:15)
[2019-05-07] MEDS: oxyCODONE/ACETAMINOPHEN 5-325 MG TABLET PO PRN (20:51)
[2019-05-08] MEDS: PIPERACILLIN/TAZOBACTAM 3,375 MG in SODIUM CHLORIDE 0.9% 100 ML IV SCH ×3 (00:29→16:51)
[2019-05-08] MEDS: INSULIN REGULAR 100 UNIT/ML SUBCUT SCH ×4 (00:30→18:44)
[2019-05-08] MEDS: PSEUDOEPHEDRINE 30 MG TABLET PO SCH ×4 (04:38→21:45)
[2019-05-08] MEDS: oxyCODONE/ACETAMINOPHEN 5-325 MG TABLET PO PRN ×3 (04:39→20:08)
[2019-05-08] MEDS: ALBUTEROL/IPRATROPIUM 3 ML NEB RESP TX SCH ×4 (07:18→20:30)
[2019-05-08] MEDS: methylPREDNISolone SOD SUC 125 MG/2 ML VIAL IV SCH ×2 (08:32→20:08)
[2019-05-08] MEDS: ASPIRIN EC 81 MG TABLET PO SCH (08:37)
[2019-05-08] MEDS: ENOXAPARIN 40 MG/0.4 ML SYRINGE SUBCUT SCH (08:37)
[2019-05-08] MEDS: LANSOPRAZOLE ODT 30 MG TABLET PER TUBE SCH (08:38)
[2019-05-08] MEDS: MULTIVITAMIN (CENTRUM) TABLET PO SCH (08:38)
[2019-05-08] MEDS: CLOPIDOGREL 75 MG TABLET PO SCH (08:38)
[2019-05-08] MEDS: METOPROLOL TARTRATE 25 MG TABLET PO SCH ×2 (08:38→20:08)
[2019-05-08] MEDS: LORATADINE 10 MG TABLET PO SCH (08:38)
[2019-05-09] MEDS: PIPERACILLIN/TAZOBACTAM 3,375 MG in SODIUM CHLORIDE 0.9% 100 ML IV SCH ×2 (00:11→08:12)
[2019-05-09] MEDS: INSULIN REGULAR 100 UNIT/ML SUBCUT SCH ×3 (00:18→11:52)
[2019-05-09] MEDS: PSEUDOEPHEDRINE 30 MG TABLET PO SCH (04:06)
[2019-05-09] MEDS: ALBUTEROL/IPRATROPIUM 3 ML NEB RESP TX SCH ×2 (07:45→10:47)
[2019-05-09] MEDS: LANSOPRAZOLE ODT 30 MG TABLET PER TUBE SCH (08:10)
[2019-05-09] MEDS: CLOPIDOGREL 75 MG TABLET PO SCH (08:10)
[2019-05-09] MEDS: METOPROLOL TARTRATE 25 MG TABLET PO SCH (08:10)
[2019-05-09] MEDS: MULTIVITAMIN (CENTRUM) TABLET PO SCH (08:10)
[2019-05-09] MEDS: ASPIRIN EC 81 MG TABLET PO SCH (08:10)
[2019-05-09] MEDS: LORATADINE 10 MG TABLET PO SCH (08:10)
[2019-05-09] MEDS: methylPREDNISolone SOD SUC 125 MG/2 ML VIAL IV SCH (08:12)
[2019-05-09] MEDS: ENOXAPARIN 40 MG/0.4 ML SYRINGE SUBCUT SCH (08:12)
[2019-05-09 12:04] VITALS: BP 128/73
== END 2019-05-09 13:13 | disposition home or self-care (01) | DRG 182 ==
LOC: N.ED 22:57 → N.EDINP 05-02 05:14 → SUATTDRO 05-02 05:14 → N.4E 05-02 05:35 → N.CC 05-05 14:47 → N.4E 05-07 13:40
PROVIDERS: ADMIT Internal Medicine Cardiovascular Disease; ATTEND Internal Medicine

== ENCOUNTER 2019-07-26 14:33 | Inpatient (IN) ==
[2019-07-26] MEDS ORDERED: LACTATED RINGERS 500 ML IV ONE (16:34)
[2019-07-26 16:57] LABS: Basophils % 0.2 % (0.0-0.8); Eosinophils # 0.1 10*3/uL (0.0-0.87); Eosinophils % 0.4 % (0.00-10.9); Hematocrit 35.2 VOL% (42.0-52.0); Hemoglobin 11.1 GM/DL (14.0-18.0); Immature Granulocytes % 0.6 %; Immature Granulocytes Absolute 0.09 #; Lymphocytes # 0.4 10*3/uL (1.4-4.0); Lymphocytes % 2.4 % (21.2-54.2); Mean Corpuscular HGB Conc 31.5 GM/DL (32-36); Mean Corpuscular Volume 95.1 FL (87-102); Mean Platelet Volume 9.1 FL (9.6-12.0); Monocytes % 7.7 % (1.7-12.7); Neutrophils % 88.7 % (38.7-73.9); Platelet Count 320 T/CUMM (130-400); Red Cell Distribution Width 13.5 % (9.3-17.3); White Blood Count 15.1 T/CUMM (4-12)
[2019-07-26 17:07] LABS: INR 1.1; PT Patient Result 11.8 SECS (9.6-12.2); Partial Thromboplastin Time 31.7 SECS (20.8-36.0)
[2019-07-26 17:19] LABS: Platelet Estimate Adequate; Segmented Neutrophils 93 % (50-85); Total Cells Counted 100
[2019-07-26] MEDS ORDERED: CEFEPIME 2,000 MG in SODIUM CHLORIDE 0.9% 100 ML IV STA (17:23)
[2019-07-26] MEDS ORDERED: DEXAMETHASONE 4 MG/1 ML VIAL IV STA (17:23)
[2019-07-26] MEDS ORDERED: VANCOMYCIN INJ 1,000 MG in SODIUM CHLORIDE 0.9% 250 ML IV STA (17:24)
[2019-07-26 17:26] LABS: Alanine Aminotransferase 37 U/L (16-61); Albumin 2.7 G/DL (3.4-5.0); Alkaline Phosphatase 116 U/L (45-117); Aspartate Amino Transferase 24 U/L (0-37); Bilirubin,Total < 0.39 MG/DL (0.2-1.0); Blood Urea Nitrogen 13 MG/DL (7-18); Calcium 9.4 MG/DL (8.5-10.1); Estimated Glom Filtration Rate 127 ML/MIN; Glucose 143 MG/DL (74-106); Osmolality,Calculated 267.4 MOS/KG (273-304); Total Protein 6.5 G/DL (6.4-8.3)
[2019-07-26] MEDS ORDERED: POTASSIUM CHLORIDE 20 MEQ TABLET PO STA (17:31)
[2019-07-26] MEDS ORDERED: oxyCODONE/ACETAMINOPHEN 5-325 MG TABLET PO PRN (19:56)
[2019-07-26] MEDS ORDERED: BENZONATATE 100 MG CAPSULE PO PRN (19:56)
[2019-07-26] MEDS: fentaNYL 25 MCG/HR PATCH TRANSDERM SCH (22:28)
[2019-07-27] MEDS: DEXAMETHASONE 4 MG/1 ML VIAL IV SCH ×6 (00:02→21:24)
[2019-07-27] MEDS: cefTRIAXone 1,000 MG in SYRINGE 1 EACH IV SCH ×2 (00:02→21:24)
[2019-07-27 04:55] LABS: Hematocrit 35.6 VOL% (42.0-52.0); Hemoglobin 11.3 GM/DL (14.0-18.0); Immature Granulocytes % 0.5 %; Immature Granulocytes Absolute 0.06 #; Lymphocytes # 0.1 10*3/uL (1.4-4.0); Lymphocytes % 1.1 % (21.2-54.2); Mean Corpuscular HGB Conc 31.7 GM/DL (32-36); Mean Corpuscular Volume 94.4 FL (87-102); Neutrophils % 96.4 % (38.7-73.9); Platelet Count 278 T/CUMM (130-400); Red Blood Count 3.77 MC/CUMM (3.8-5.5); Red Cell Distribution Width 13.5 % (9.3-17.3); White Blood Count 11.7 T/CUMM (4-12)
[2019-07-27 05:28] LABS: Hypochromasia Slight; Lymphocytes 1 % (20-55); Pappenheimer Bodies 1+; Platelet Estimate Normal; Segmented Neutrophils 99 % (50-85); Total Cells Counted 100
[2019-07-27 05:29] LABS: Calcium 9.1 MG/DL (8.5-10.1); Osmolality,Calculated 288.3 MOS/KG (273-304)
[2019-07-27] MEDS: CLOPIDOGREL 75 MG TABLET PO SCH (09:54)
[2019-07-27] MEDS: LANSOPRAZOLE ODT 30 MG TABLET PO SCH (09:54)
[2019-07-27] MEDS: oxyCODONE/ACETAMINOPHEN 5-325 MG TABLET PO PRN ×2 (11:40→21:25)
[2019-07-28] MEDS: DEXAMETHASONE 4 MG/1 ML VIAL IV SCH ×6 (00:10→20:16)
[2019-07-28 04:58] LABS: Basophils % 0.1 % (0.0-0.8); Hematocrit 34.9 VOL% (42.0-52.0); Hemoglobin 11.2 GM/DL (14.0-18.0); Immature Granulocytes % 0.9 %; Immature Granulocytes Absolute 0.19 #; Lymphocytes # 0.2 10*3/uL (1.4-4.0); Lymphocytes % 0.9 % (21.2-54.2); Mean Corpuscular HGB Conc 32.1 GM/DL (32-36); Mean Corpuscular Volume 94.8 FL (87-102); Monocytes % 2.8 % (1.7-12.7); Neutrophils % 95.3 % (38.7-73.9); Platelet Count 323 T/CUMM (130-400); Red Blood Count 3.68 MC/CUMM (3.8-5.5); Red Cell Distribution Width 13.6 % (9.3-17.3)
[2019-07-28 05:24] LABS: Band Neutrophils 1 % (0-10); Hypochromasia 1+; Lymphocytes 1 % (20-55); Ovalocytes Slight; Platelet Estimate Adequate; Segmented Neutrophils 97 % (50-85); Total Cells Counted 100
[2019-07-28] MEDS: oxyCODONE/ACETAMINOPHEN 5-325 MG TABLET PO PRN ×3 (07:09→21:25)
[2019-07-28 07:27] LABS: Amorphous Crystals,Urine Few /HPF (Few); Apearance,Urine CLOUDY (Clear); Bilirubin,Urine Negative (Negative); Blood, Urine Negative (Negative); Glucose,Urine (UA) Negative (Negative); Ketones,Urine Negative (Negative); Mucus,Urine Occasional /LPF (Occasional); Nitrite,Urine Negative (Negative); Protein,Urine Negative; RBC,Urine 3 /HPF (0-4); Sperm,Urine Occasional /HPF (Negative); Urine Color Yellow (Yellow); Urine Specific Gravity 1.011 (1.001-1.035); Urine Urobilinogen < 2.0 EU/DL (0.2-1.0)
[2019-07-28] MEDS: CLOPIDOGREL 75 MG TABLET PO SCH (08:25)
[2019-07-28] MEDS ORDERED: TUBERCULIN SKIN TEST 0.1 ML SYRINGE INTRADERM ONE (09:40)
[2019-07-28] MEDS: LANSOPRAZOLE ODT 30 MG TABLET PO SCH (09:59)
[2019-07-28] MEDS: LANSOPRAZOLE 3 MG/ML 90 ML/BOTTLE PO SCH (10:55)
[2019-07-28] MEDS ORDERED: METHYLNALTREXONE 12 MG/0.6 ML VIAL SUBCUT ONE (11:57)
[2019-07-29] MEDS: DEXAMETHASONE 4 MG/1 ML VIAL IV SCH ×3 (00:28→09:06)
[2019-07-29] MEDS: oxyCODONE/ACETAMINOPHEN 5-325 MG TABLET PO PRN ×3 (06:14→23:59)
[2019-07-29] MEDS: LINACLOTIDE 145 MCG CAPSULE PO SCH (09:02)
[2019-07-29] MEDS: CLOPIDOGREL 75 MG TABLET PO SCH (09:05)
[2019-07-29] MEDS: LANSOPRAZOLE 3 MG/ML 90 ML/BOTTLE PO SCH (09:07)
[2019-07-29] MEDS: fentaNYL 25 MCG/HR PATCH TRANSDERM SCH (20:39)
[2019-07-29] MEDS: DEXAMETHASONE 4 MG TABLET PO SCH (20:42)
[2019-07-30] MEDS: LINACLOTIDE 145 MCG CAPSULE PO SCH (06:47)
[2019-07-30] MEDS: CLOPIDOGREL 75 MG TABLET PO SCH (08:56)
[2019-07-30] MEDS: oxyCODONE/ACETAMINOPHEN 5-325 MG TABLET PO PRN ×3 (08:56→21:14)
[2019-07-30] MEDS: DEXAMETHASONE 4 MG TABLET PO SCH ×2 (08:56→21:15)
[2019-07-30] MEDS: LANSOPRAZOLE 3 MG/ML 90 ML/BOTTLE PO SCH (08:57)
[2019-07-31] MEDS: oxyCODONE/ACETAMINOPHEN 5-325 MG TABLET PO PRN ×2 (04:33→09:33)
[2019-07-31] MEDS: LINACLOTIDE 145 MCG CAPSULE PO SCH (07:57)
[2019-07-31 08:07] VITALS: BP 127/74
[2019-07-31] MEDS: CLOPIDOGREL 75 MG TABLET PO SCH (09:00)
[2019-07-31] MEDS: LANSOPRAZOLE 3 MG/ML 90 ML/BOTTLE PO SCH (09:01)
[2019-07-31] MEDS: DEXAMETHASONE 4 MG TABLET PO SCH (09:01)
== END 2019-07-31 11:19 | disposition hospice, inpatient (51) | DRG 41 ==
LOC: N.ED 14:33 → SUATTDRO 19:52 → N.EDINP 19:52 → SUPCPDRO 19:52 → N.2E 20:22
PROVIDERS: ADMIT Internal Medicine Nephrology; ATTEND Internal Medicine